=== PATIENT | female | born 1960 | race Caucasian/White ===

== ENCOUNTER 2016-07-10 18:22 | Outpatient (CLI) | payer BC ==
[2016-07-10 22:43] LABS: HEMOGLOBIN 6.5 gm/dl (12.3-15.3)
== END 2016-07-11 04:30 | disposition home or self-care (01) ==
LOC: OPSV 18:22 → MED SURG 4 18:30 → OPSV 07-11 04:30
PROVIDERS: Internal Medicine Hematology & Oncology
DX: D64.9 Anemia, unspecified (principal); C91.00 Acute lymphoblastic leukemia not having achieved remission
CPT/HCPCS: 36415; 36430; 85014; 85018; 85049; 86850; 86900; 86901; 86920; P9040; Q0163

== ENCOUNTER → 2016-07-13 | Outpatient (CLI) | payer BC ==
[2016-07-13 16:59] LABS: HEMOGLOBIN 7.3 gm/dl (12.3-15.3)
== END ==
LOC: LAB 15:44 → OPSV 15:44
PROVIDERS: Internal Medicine
DX: C83.50 Lymphoblastic (diffuse) lymphoma, unspecified site (principal); D64.9 Anemia, unspecified
CPT/HCPCS: 85014; 85018; 85049

== ENCOUNTER → 2016-07-15 | Outpatient (CLI) | payer BC ==
[~2016-07-15] VITALS: Ht 160 cm; Wt 74.8 kg
== END ==
LOC: OPSV 13:10
DX: C83.50 Lymphoblastic (diffuse) lymphoma, unspecified site (principal); D64.9 Anemia, unspecified
CPT/HCPCS: 36430; 36592; 86850; 86900; 86901; 86920; J7050; P9040; Q0163

== ENCOUNTER → 2016-08-18 | Outpatient (CLI) | payer BC ==
[~2016-08-18] VITALS: Ht 160 cm; Wt 74.8 kg
[2016-08-18 08:38] LABS: HEMOGLOBIN 7.1 gm/dl (12.3-15.3)
== END ==
LOC: OPSV 08:00
PROVIDERS: Internal Medicine
DX: C83.50 Lymphoblastic (diffuse) lymphoma, unspecified site (principal); D63.0 Anemia in neoplastic disease
CPT/HCPCS: 36430; 36592; 85014; 85018; 85049; 86850; 86900; 86901; 86920; J1200; J7050; P9040; Q0163

== ENCOUNTER 2016-08-28 14:46 | Outpatient (CLI) | payer BC ==
[2016-08-28 15:59] LABS: HEMOGLOBIN 6.7 gm/dl (12.3-15.3)
== END 2016-08-28 20:00 | disposition home or self-care (01) ==
LOC: LAB 14:46 → OPSV 14:46
PROVIDERS: Internal Medicine
DX: C83.50 Lymphoblastic (diffuse) lymphoma, unspecified site (principal); D64.9 Anemia, unspecified
CPT/HCPCS: 36430; 36592; 85014; 85018; 85049; 86850; 86900; 86901; 86920; J7050; P9040; Q0163

== ENCOUNTER → 2016-10-23 | Outpatient (CLI) | payer BC ==
[~2016-10-23] VITALS: Ht 160 cm; Wt 70.3 kg
[2016-10-23 14:45] LABS: HEMOGLOBIN 7.2 gm/dl (12.3-15.3)
== END ==
LOC: OPSV 14:00
PROVIDERS: Internal Medicine
DX: C83.50 Lymphoblastic (diffuse) lymphoma, unspecified site (principal); D64.9 Anemia, unspecified
CPT/HCPCS: 36592; 85014; 85018; 85049

== ENCOUNTER → 2016-10-27 | Outpatient (CLI) | payer BC | LOC: OPSV 09:00 | PROVIDERS: Internal Medicine | DX: C83.50 Lymphoblastic (diffuse) lymphoma, unspecified site (principal); D64.9 Anemia, unspecified | CPT/HCPCS: 36430; 36592; 85018; 85049; 86850; 86900; 86901; 86920; J7050; P9040; Q0163 ==

== ENCOUNTER → 2017-01-18 | Outpatient (CLI) | payer BC ==
[~2017-01-18] VITALS: Ht 160 cm; Wt 74.8 kg
[2017-01-18 15:33] LABS: HEMOGLOBIN 5.8 gm/dl (12.3-15.3)
== END ==
LOC: OPSV 14:00
PROVIDERS: Internal Medicine
DX: C83.50 Lymphoblastic (diffuse) lymphoma, unspecified site (principal); D64.9 Anemia, unspecified
CPT/HCPCS: 36430; 36592; 85014; 85018; 85049; 86850; 86900; 86901; 86920; J7050; P9040; Q0163

== ENCOUNTER → 2020-06-26 | Outpatient (CLI) | payer BC ==
[~2020-06-26] MED LIST: ACYCLOVIR400 MG PO; BACTRIM DS TAB1 EACH PO; DEXAMETHASONE2 MG PO; MEGACE SUSP40 MG/M1 PO; MG-PLUS-PROTEI133 MG PO; TASIGNA150 MG PO; VENTOLIN HFA 66.7 GM INH
[2020-06-26 11:05] LABS: HEMOGLOBIN 12.4 gm/dl (12.3-15.3); RED BLOOD COUNT 4.02 M/UL (4.00-5.10); WHITE BLOOD COUNT 8.2 K/UL (4.5-11.0)
== END ==
LOC: LAB 09:36
PROVIDERS: Physician Assistant Medical
DX: C91.00 Acute lymphoblastic leukemia not having achieved remission (principal)
CPT/HCPCS: 36415; 80053; 81206; 81207; 83615; 85025

== ENCOUNTER → 2022-01-14 | Day surgery (SDC) | payer BC ==
[~2022-01-14] VITALS: Ht 160 cm; Wt 85.3 kg
== END | disposition home or self-care (01) ==
LOC: OR 08:15
DX: D12.0 Benign neoplasm of cecum (principal); D12.8 Benign neoplasm of rectum; K59.00 Constipation, unspecified; R19.7 Diarrhea, unspecified; K57.30 Diverticulosis of large intestine without perforation or abscess without bleeding; K64.1 Second degree hemorrhoids; K64.4 Residual hemorrhoidal skin tags; E66.01 Morbid (severe) obesity due to excess calories; Z68.32 Body mass index [BMI] 32.0-32.9, adult; Z79.899 Other long term (current) drug therapy
CPT/HCPCS: J2704; J7040